=== PATIENT | female | born 1950 | race Caucasian/White ===

== ENCOUNTER → 2016-11-12 | Outpatient (CLI) | payer MEDICARE, OTHER ==
[~2016-11-12] MED LIST: ALENDRONATE SOD70 MG PO; ASPIRIN LO-DOSE81 MG PO; CALCIUM 600 +1 EAC4 PO; IMDUR60 MG PO; K-TAB ER20 MEQ PO; LIPITOR40 MG PO; MAXZIDE-25MG 371 TAB PO; MOBIC7.5 MG PO; MULTI VITAMIN1 EACH PO; NORCO 5-325 MG1 TAB PO; PROVENTIL OR V6.7 GM INH; VITAMIN D1000 UNIT PO
== END | disposition disaster alternative care site (69) ==
LOC: GRAD 10:25
DX: C79.51 Secondary malignant neoplasm of bone (principal); C79.31 Secondary malignant neoplasm of brain; C34.90 Malignant neoplasm of unspecified part of unspecified bronchus or lung

== ENCOUNTER → 2016-11-30 | Outpatient (CLI) | payer MEDICARE, OTHER | END | disposition disaster alternative care site (69) | LOC: GAMB 16:30 | DX: R50.9 Fever, unspecified (principal); C34.90 Malignant neoplasm of unspecified part of unspecified bronchus or lung; R53.83 Other fatigue; Z79.899 Other long term (current) drug therapy | CPT/HCPCS: A0425; A0429; J7030 ==